=== PATIENT | female | born 2000 | race Caucasian/White ===

== ENCOUNTER 2020-10-27 11:38 | Inpatient (IN) | payer BC ==
[2020-10-27] MEDS ORDERED: CEFEPIME/SWI 1gm 10 ML ONE (13:09)
[2020-10-27] MEDS ORDERED: ONDANSETRON 4 MG/2 ML VIAL ONE (13:09)
[2020-10-27] MEDS ORDERED: MORPHINE 4 MG/ML SYR ONE ×2 (13:09→22:30)
[2020-10-27 13:12] LABS: BUN Blood Urea Nitrogen 11 mg/dL (7-18); Bicarbonate 24 mmol/L (21-32); Glucose Level 87 mg/dL (74-106); Potassium 3.5 mmol/L (3.5-5.1); Sodium Level 137 mmol/L (136-145)
[2020-10-27] MEDS ORDERED: VANCOMYCIN/NS 1 gm 1 GM/250 ML BAG IVPB ONE (13:15)
[2020-10-27 13:17] LABS: Absolute Lymphocytes (CBC) 6.5 K/uL (0.7-4.9); Basophils % 0.2 % (0-1.3); Hematocrit 40.4 % (36.0-45.0)
[2020-10-27 13:54] LABS: Urine Blood NEGATIVE (NEG); Urine Glucose NEGATIVE (NEG); Urine Protein 1+ (NEG); Urine Specific Gravity 1.025 (1.005-1.030)
--- NOTE | 2020-10-27 14:26 | EDPHYS ---
Physician Documentation [facility] Name: Lynne Pearson Age: 19 yrs Sex: Female : 2000 Arrival Date: 10/27/2020 Time: 11:40 Bed 17 Private MD: ED Physician Wilberto Ocampo HPI: 10/27 12:51 This 19 yrs old Female presents to ER via Ambulatory with complaints of jr8 Abscess. 12:52 The patient presents with an abscess of the left breast. Description: The affected area jr8 is moderate sized, draining, erythematous, swollen, tense. Onset: The symptoms/episode began/occurred gradually, 2 day(s) ago, and became worse. Possible cause(s): unknown. Associated signs and symptoms: The patient has no apparent associated signs or symptoms. Severity of symptoms: At their worst the symptoms were moderate. The patient has not experienced similar symptoms in the past. The patient has not recently seen a physician. Patient stated that she had a nipple piercing that looked infected. Took it out about 2 days ago. Now has left lateral breast abscess that is draining . 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 - Social history:: Smoking status: Patient denies any tobacco usage or history of. ROS: 12:52 Eyes: Negative for injury, pain, redness, and discharge, ENT: Negative for injury, jr8 pain, and discharge, Neck: Negative for injury, pain, and swelling, Cardiovascular: Negative for chest pain, palpitations, and edema, Respiratory: Negative for shortness of breath, cough, wheezing, and pleuritic chest pain, Abdomen/GI: Negative for abdominal pain, nausea, vomiting, diarrhea, and constipation, Back: Negative for injury and pain, MS/Extremity: Negative for injury and deformity, Neuro: Negative for headache, weakness, numbness, tingling, and seizure. 12:52 Skin: Positive for abscess, cellulitis, of the left breast. Exam: 12:52 Eyes: Pupils equal round and reactive to light, extra-ocular motions intact. Lids and jr8 lashes normal. Conjunctiva and sclera are non-icteric and not injected. Cornea within normal limits. Periorbital areas with no swelling, redness, or edema. ENT: Nares patent. No nasal discharge, no septal abnormalities noted. Tympanic membranes are normal and external auditory canals are clear. Oropharynx with no redness, swelling, or masses, exudates, or evidence of obstruction, uvula midline. Mucous membranes moist. Neck: Trachea midline, no thyromegaly or masses palpated, and no cervical lymphadenopathy. Supple, full range of motion without nuchal rigidity, or vertebral point tenderness. No Meningismus. Respiratory: Lungs have equal breath sounds bilaterally, clear to auscultation and percussion. No rales, rhonchi or wheezes noted. No increased work of breathing, no retractions or nasal flaring. Abdomen/GI: Soft, non-tender, with normal bowel sounds. No distension or tympany. No guarding or rebound. No evidence of tenderness throughout. Back: No spinal tenderness. No costovertebral tenderness. Full range of motion. MS/ Extremity: Pulses equal, no cyanosis. Neurovascular intact. Full, normal range of motion. Neuro: Awake and alert, GCS 15, oriented to person, place, time, and situation. Cranial nerves II-XII grossly intact. Motor strength 5/5 in all extremities. Sensory grossly intact. Cerebellar exam normal. Normal gait. 12:52 Cardiovascular: Rate: tachycardic, Rhythm: regular, Pulses: Pulses are 2+ in right radial artery and left radial artery. Heart sounds: normal, normal S1and S2, no S3 or S4, no murmur, no rub, no gallop, Edema: is not appreciated. 12:52 Skin: patient has moderated sided 5 cm x 5 cm left lateral abscess with induration and cellulitis surround about 2/3rd of patients breast. Tender and warm to touch . Vital Signs: 11:43 BP 120 / 70; Pulse 120; Resp 16 S; Temp 97.3(TE); Pulse Ox 100% on R/A; Weight 122.47 ca1 kg (R); Height 5 ft. 5 in. (165.10 cm) (R); Pain 7/10; 11:45 Pulse 113; ca1 14:06 BP 113 / 64; Pulse 95; Resp 16 S; Pulse Ox 99% on R/A; jd3 15:20 BP 122 / 56; Pulse 99; Resp 17 S; Pulse Ox 99% on R/A; jd3 16:21 BP 93 / 76; Pulse 100; Resp 16 S; Pulse Ox 99% on R/A; jd3 17:37 BP 99 / 51; Pulse 102; Resp 15 S; Pulse Ox 98% on R/A; jd3 18:45 BP 95 / 73; Pulse 100; Resp 16 S; Pulse Ox 100% on R/A; jd3 19:38 BP 114 / 68; Pulse 108; Resp 18; Pulse Ox 100% on R/A; mg2 11:43 Body Mass Index 44.93 (122.47 kg, 165.10 cm) ca1 MDM: 12:07 Patient medically screened. [facility] 14:16 Data reviewed: vital signs, nurses notes, lab test result(s), radiologic studies, [facility] ultrasound. Data interpreted: Pulse oximetry: on room air is 99 %. Interpretation: normal. Counseling: I had a detailed discussion with the patient and/or guardian regarding: the historical points, exam findings, and any diagnostic results supporting the discharge/admit diagnosis, lab results, radiology results, the need for further work-up and treatment in the hospital. ED course: Dr. Kat will admit patient and take to surgery at 8 AM . 10/27 12:20 Order name: CBC with Diff [facility] 10/27 12:20 Order name: BMP [facility] 10/27 12:20 Order name: Blood Culture Adult (2) [facility] 10/27 12:20 Order name: Wound Culture [facility] 10/27 13:12 Order name: Basic Metabolic Panel; Complete Time: 13:13 [facility] 10/27 13:19 Order name: CBC with Automated Diff; Complete Time: 13:24 [facility] 10/27 13:27 Order name: Urine Dipstick--Ancillary (enter results) 10/27 13:27 Order name: Urine --Ancillary (enter results) 10/27 13:55 Order name: Urine --Ancillary; Complete Time: 14:06 [facility] 10/27 13:55 Order name: Urine Dipstick-Ancillary; Complete Time: 14:06 [facility] 10/27 14:27 Order name: COVID-19: in house [facility] 10/27 16:58 Order name: CORONAVIRUS [facility] 10/27 18:07 Order name: SARS-COV-2 RT PCR; Complete Time: 18:18 EDMS 10/28 05:19 Order name: CBC with Automated Diff [facility] 10/27 12:20 Order name: IV; Complete Time: 12:51 jr8 10/27 12:52 Order name: US Extrmty Nonvasular Limited [facility] 10/27 12:52 Order name: Urine Test (obtain specimen); Complete Time: 13:14 8 10/27 12:52 Order name: Urine Dipstick-Ancillary (obtain specimen); Complete Time: 13:14 8 10/27 14:36 Order name: US; Complete Time: 14:39 EDMS 10/28 05:19 Order name: Basic Metabolic Panel [facility] 10/28 13:58 Order name: Wound Culture EDMS 10/28 13:59 Order name: Anaerobic Culture [facility] Administered Medications: 13:04 Drug: morphine 4 mg Route: IVP; Site: right wrist; jd3 14:00 Follow up: Response: No adverse reaction; RASS: Alert and Calm (0) jd3 13:05 Drug: Zofran (Ondansetron) 4 mg Route: IVP; Site: right wrist; jd3 14:00 Follow up: Response: No adverse reaction jd3 13:05 Drug: Cefepime 1 grams Route: IVPB; Rate: 200 ml/hr; Infused Over: 30 mins; Site: right jd3 wrist; 14:00 Follow up: Response: No adverse reaction; IV Status: Completed infusion jd3 14:12 Drug: vancoMYCIN 1 grams Route: IVPB; Infused Over: 2 hrs; Site: right wrist; jd3 16:00 Follow up: Response: No adverse reaction; IV Status: Completed infusion jd3 Disposition: 10/27/20 14:26 Hospitalization ordered by Mauricio Kat for Inpatient Admission. Preliminary diagnosis are Cellulitis Left Breast, Cutaneous abscess left breast . - Bed requested for Telemetry/MedSurg (Inpatient). - Status is Inpatient Admission. iw - Condition is Stable. - Problem is new. - Symptoms have improved. Addendum: 10/30/2020 06:27 Co-signature as Attending Physician, Wilberto Ocampo MD I agree with the assessment and t w4 plan of care. Signatures: Dispatcher [employer] EDMS Emani Leon RN RN iw Broderick Hernandez PA PA jr8 Virgen Mclaughlin RN RN cg Marcelino Garcia RN RN jd3 Wilberto Ocampo MD MD tw4 Zahra Hawkins eb Uma Garcia RN RN ca1 Corrections: (The following items were deleted from the chart) 10/27 11:45 11:45 PSHx: None; ca1 ca1 20:45 14:26 Hospitalization Ordered by Mauricio Kat MD for Inpatient Admission. Preliminary cg diagnosis is Cellulitis Left Breast; Cutaneous abscess left breast . Bed requested for Telemetry/MedSurg (Inpatient). Status is Inpatient Admission. Condition is Stable. Problem is new. Symptoms have improved. jr8 10/28 14:40 10/27 20:45 10/27/2020 14:26 Hospitalization Ordered by Mauricio Kat MD for Inpatient eb Admission. Preliminary diagnosis is Cellulitis Left Breast; Cutaneous abscess left breast . Bed requested for [facility] ER HOLD. Status is Inpatient Admission. Condition is Stable. Problem is new. Symptoms have improved. cg 10/28 15:47 14:40 10/27/2020 14:26 Hospitalization Ordered by Mauricio Kat MD for Inpatient iw Admission. Preliminary diagnosis is Cellulitis Left Breast; Cutaneous abscess left breast . Bed requested for Telemetry/MedSurg (Inpatient). Status is Inpatient Admission. Condition is Stable. Problem is new. Symptoms have improved. eb
--- NOTE | 2020-10-27 14:26 | ER ---
Nurse's Notes [facility] Name: Lynne Pearson Age: 19 yrs Sex: Female : 2000 Arrival Date: 10/27/2020 Time: 11:40 Bed 17 [facility] MD: Diagnosis: Cellulitis Left Breast;Cutaneous abscess left breast Presentation: 10/27 11:43 Chief complaint: Patient states: Abscess on L breast x 1 week. Coronavirus screen: ca1 Client denies travel out of the [place] in the last 14 days. At this time, the client does not indicate any symptoms associated with coronavirus-19. Ebola Screen: Patient negative for fever greater than or equal to 101.5 degrees Fahrenheit, and additional compatible Ebola Virus Disease symptoms Patient denies exposure to infectious person. Patient denies travel to an Ebola-affected area in the 21 days before illness onset. No symptoms or risks identified at this time. Initial Sepsis Screen: Does the patient meet any 2 criteria? No. Patient's initial sepsis screen is negative. Does the patient have a suspected source of infection? No. Patient's initial sepsis screen is negative. Risk Assessment: Do you want to hurt yourself or someone else? Patient reports no desire to harm self or others. Onset of symptoms was October 27, 2020. 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 - Social history:: Smoking status: Patient denies any tobacco usage or history of. Screenin:10 Abuse screen: Denies threats or abuse. Nutritional screening: No deficits noted. jd3 Tuberculosis screening: No symptoms or risk factors identified. Fall Risk Ambulatory Aid- None/Bed Rest/Nurse Assist (0 pts). Gait- Normal/Bed Rest/Wheelchair (0 pts) Mental Status- Oriented to own ability (0 pts). Total Koenig Fall Scale indicates No Risk (0-24 pts). Assessment: 12:08 General: Appears in no apparent distress. uncomfortable, Behavior is calm, cooperative, jd3 appropriate for age. Pain: Complains of pain in left breast Pain Quality of pain is described as sharp, tender. Neuro: Level of Consciousness is awake, alert, obeys commands, Oriented to person, place, time, situation. Cardiovascular: Denies chest pain, Capillary refill < 3 seconds Patient's skin is warm and dry. Respiratory: Airway is patent Respiratory effort is even, unlabored, Respiratory pattern is regular, symmetrical, Denies cough, shortness of breath. GI: No signs and/or symptoms were reported involving the gastrointestinal system. : No signs and/or symptoms were reported regarding the genitourinary system. EENT: No signs and/or symptoms were reported regarding the EENT system. Derm: Skin is intact, Skin is dry, Skin is normal, Skin temperature is warm Wound noted left breast Wound is red, swollen, foul smell noted. Musculoskeletal: Circulation, motion, and sensation intact. Range of motion: intact in all extremities. 13:05 Reassessment: Patient appears in no apparent distress at this time. No changes from jd3 previously documented assessment. Patient and/or family updated on plan of care and expected duration. Pain level reassessed. Patient is alert, oriented x 3, equal unlabored respirations, skin warm/dry/pink. 14:06 Reassessment: Patient appears in no apparent distress at this time. Patient and/or jd3 family updated on plan of care and expected duration. Pain level reassessed. Patient is alert, oriented x 3, equal unlabored respirations, skin warm/dry/pink. Patient states feeling better. 15:20 Reassessment: Patient appears in no apparent distress at this time. Patient and/or jd3 family updated on plan of care and expected duration. Pain level reassessed. Patient is alert, oriented x 3, equal unlabored respirations, skin warm/dry/pink. awaiting admission. 16:22 Reassessment: Patient appears in no apparent distress at this time. Patient and/or jd3 family updated on plan of care and expected duration. Pain level reassessed. Patient is alert, oriented x 3, equal unlabored respirations, skin warm/dry/pink. awaiting admission. 17:36 Reassessment: Patient appears in no apparent distress at this time. No changes from jd3 previously documented assessment. Patient and/or family updated on plan of care and expected duration. Pain level reassessed. Patient is alert, oriented x 3, equal unlabored respirations, skin warm/dry/pink. awaiting admission. pt resting in bed talking on phone with family. updated pt on plan of care. 18:45 Reassessment: Patient appears in no apparent distress at this time. No changes from jd3 previously documented assessment. Patient and/or family updated on plan of care and expected duration. Pain level reassessed. Patient is alert, oriented x 3, equal unlabored respirations, skin warm/dry/pink. awaiting admission. 19:37 Reassessment: Patient appears in no apparent distress at this time. Patient and/or mg2 family updated on plan of care and expected duration. Pain level reassessed. Patient is alert, oriented x 3, equal unlabored respirations, skin warm/dry/pink. explained about the covid test result. meal given. 10/28 15:32 Reassessment: Gave report to ZHANE Gerardo. Information from the SBAR was given. All rb3 questions asked and answered. Vital Signs: 10/27 11:43 BP 120 / 70; Pulse 120; Resp 16 S; Temp 97.3(TE); Pulse Ox 100% on R/A; Weight 122.47 ca1 kg (R); Height 5 ft. 5 in. (165.10 cm) (R); Pain 7/10; 11:45 Pulse 113; ca1 14:06 BP 113 / 64; Pulse 95; Resp 16 S; Pulse Ox 99% on R/A; jd3 15:20 BP 122 / 56; Pulse 99; Resp 17 S; Pulse Ox 99% on R/A; jd3 16:21 BP 93 / 76; Pulse 100; Resp 16 S; Pulse Ox 99% on R/A; jd3 17:37 BP 99 / 51; Pulse 102; Resp 15 S; Pulse Ox 98% on R/A; jd3 18:45 BP 95 / 73; Pulse 100; Resp 16 S; Pulse Ox 100% on R/A; jd3 19:38 BP 114 / 68; Pulse 108; Resp 18; Pulse Ox 100% on R/A; mg2 11:43 Body Mass Index 44.93 (122.47 kg, 165.10 cm) ca1 ED Course: 11:40 Patient arrived in ED. ag5 11:44 Triage completed. ca1 11:45 Arm band placed on right wrist. ca1 12:02 Marcelino Garcia RN is Primary Nurse. jd3 12:06 Broderick Hernandez PA is PHCP. jr8 12:06 Wilberto Ocampo MD is Attending Physician. jr8 12:10 Patient has correct armband on for positive identification. Placed in gown. Bed in low jd3 position. Call light in reach. Side rails up X 1. Pulse ox on. NIBP on. 12:35 Initial lab(s) drawn, by me, sent to lab. First set of blood cultures drawn by me. jl7 12:40 Assist provider with I \T\ D: of an abscess on left breast Set up I\T\D tray. Performed by juliet 3 Broderick SNELL Culture sent to lab. Dressing with 4X4s, Patient tolerated well. 12:40 Patient admitted, IV remains in place. jd3 12:43 Inserted saline lock: 20 gauge in right wrist, using aseptic technique. Blood collected.jl7 12:43 Second set of blood cultures drawn. jl7 14:01 Urine --Ancillary (enter results) Sent. sv 14:01 Urine Dipstick--Ancillary (enter results) Sent. sv 14:24 Mauricio Kat MD is Hospitalizing Provider. jr8 18:09 CORONAVIRUS Sent. sv 18:09 COVID-19: in house Sent. sv 18:09 BMP Sent. sv 18:09 CBC with Diff Sent. sv 18:09 US Extrmty Nonvasular Limited Sent. sv 19:38 Dressings: non-adherent dressing x 1 left breast. mg2 10/28 01:06 Dressings: 4X4s X 2; chest and left breast. jb5 01:07 Wound care: to located on chest and left breast. jb5 01:08 Pillow given. Patient assisted to hospital bed from ER bed for comfort. . jb5 Administered Medications: 10/27 13:04 Drug: morphine 4 mg Route: IVP; Site: right wrist; jd3 14:00 Follow up: Response: No adverse reaction; RASS: Alert and Calm (0) jd3 13:05 Drug: Zofran (Ondansetron) 4 mg Route: IVP; Site: right wrist; jd3 14:00 Follow up: Response: No adverse reaction jd3 13:05 Drug: Cefepime 1 grams Route: IVPB; Rate: 200 ml/hr; Infused Over: 30 mins; Site: right jd3 wrist; 14:00 Follow up: Response: No adverse reaction; IV Status: Completed infusion jd3 14:12 Drug: vancoMYCIN 1 grams Route: IVPB; Infused Over: 2 hrs; Site: right wrist; jd3 16:00 Follow up: Response: No adverse reaction; IV Status: Completed infusion jd3 Outcome: 14:26 Decision to Hospitalize by Provider. jr8 10/28 15:47 Patient left the ED. iw Signatures: Arabella Antonio, RN RN Emani Jang RN RN Broderick Hernandez PA PA jr8 Jaja Howell jb5 Mendez Rizo RN RN jl7 Marcelino Garcia RN RN jd3 Pérez Farmer RN RN mg2 Uma Garcia RN RN ca1 Mirella Sky 5 Tabby Haskins, RN RN rb3 Corrections: (The following items were deleted from the chart) 10/27 11:45 11:45 PSHx: None; ca1 ca1 14:12 14:06 Pulse 95bpm; Resp 16bpm; Spontaneous; Pulse Ox 99% RA; jd3 jd3 17:40 15:00 Response: No adverse reaction; IV Status: Completed infusion jd3 jd3
--- NOTE | 2020-10-27 14:35 | RAD REPORT ---
EXAM DESCRIPTION: US - Extremity Nonvascular Limited - 10/27/2020 1:52 pm CLINICAL HISTORY: large left breast abscess COMPARISON: No comparisons TECHNIQUE: Limited sonographic evaluation of the lateral left breast performed. Patient has a draini ng palpable mass 9 o'clock left breast. FINDINGS: Sonographic evaluation shows heterogeneous, hypointense serpiginous echogenicity in the narvaez perficial 10 mm of the 9 o'clock region left breast. Findings are consistent with infectious/inflamma tory fluid in the subcutaneous and superficial breast tissues. This cellulitis appearance does not co ntain any defined or drainable abscess collection. IMPRESSION: Infectious/ inflammatory fluid in the superficial tissues lateral left breast. No abscess or drainable fluid collection.
[2020-10-27] MEDS ORDERED: ACETAMINOPHEN 500 MG TAB PO PRN (21:14)
[2020-10-27] MEDS ORDERED: ONDANSETRON 4 MG/2 ML VIAL IV PRN (21:14)
[2020-10-27] MEDS: NA CHLORIDE 0.9% 1,000 ML IV SCH (21:14)
[2020-10-27] MEDS ORDERED: MORPHINE 4 MG/ML SYR IV PRN (21:14)
[2020-10-27 21:48] VITALS: BMI 44.9
[2020-10-27] MEDS ORDERED: NA CHLORIDE 0.9% 1,000 ML ONE (22:10)
[2020-10-28] MEDS: CEFEPIME/SWI 1gm 10 ML IV SCH ×3 (01:00→19:56)
[2020-10-28] MEDS ORDERED: CEFEPIME 1 GM/VIAL IV SCH (01:00)
[2020-10-28] MEDS: VANCOMYCIN/NS 1 gm 1 GM/250 ML BAG IVPB SCH ×2 (02:44→14:00)
[2020-10-28] MEDS ORDERED: VANCOMYCIN 1 GM/VIAL ONE (02:52)
[2020-10-28] MEDS ORDERED: NA CHLORIDE 0.9% 250 ML ONE (02:52)
[2020-10-28] MEDS ORDERED: CEFEPIME/SWI 1gm 10 ML ONE ×2 (02:52→10:08)
[2020-10-28] MEDS ORDERED: ACETAMINOPHEN 500 MG TAB ONE (04:57)
[2020-10-28 05:15] LABS: Absolute Lymphocytes (CBC) 6.6 K/uL (0.7-4.9); Basophils % 0.4 % (0-1.3); Hematocrit 36.9 % (36.0-45.0); Lymphocytes % 44.3 % (15.3-44.8); MPV 8.9 fL (7.6-11.3); RBC Red Blood Cell Count 4.29 M/uL (3.86-4.86)
[2020-10-28 05:19] LABS: BUN Blood Urea Nitrogen 9 mg/dL (7-18); Bicarbonate 26 mmol/L (21-32); Glucose Level 91 mg/dL (74-106); Potassium 3.5 mmol/L (3.5-5.1); Sodium Level 138 mmol/L (136-145)
[2020-10-28] MEDS: NA CHLORIDE 0.9% 1,000 ML IV SCH ×4 (07:14→22:41)
[2020-10-28] MEDS ORDERED: BUPIVACAINE 0.5% PF 10 ML VIAL ONE (07:48)
[2020-10-28] MEDS ORDERED: Ringers Lactate 1,000 ML IV ONE (07:55)
[2020-10-28] MEDS ORDERED: CEFAZOLIN/SWI 1gm 1 GM/10 ML SYR ONE (07:56)
[2020-10-28] MEDS ORDERED: MIDAZOLAM HCL 2 MG/2 ML INJ ONE (08:33)
[2020-10-28] MEDS ORDERED: FENTANYL CITR 100 MCG/2 ML ONE (08:33)
[2020-10-28] MEDS ORDERED: propofoL 200 MG/20 ML VIAL IV ONE (08:33)
[2020-10-28] MEDS ORDERED: SUCCINYLCHOLINE 20 MG/ML (10 ML) IV ONE (08:34)
--- NOTE | 2020-10-28 08:51 | PREOPHP ---
Date of Admission: 10/27/2020 Reason For Admission: Left breast pain. History Of Present Illness: This is a 19-year-old female, who had a piercing of the nipple on the le ft breast about 6 months ago and about 2 days ago noticed redness, swelling, pain, and minimal draina ge from the lateral aspect of the left breast and this is associated with localized fever. She came to the ER. Had a leukocytosis, was admitted, had COVID test, although she does not have any symptoms of COVID, she is positive. No sore throat, runny nose, cough, headaches, or dizziness. No systemic fever or chills. No chest pain. Review of Systems: Otherwise unremarkable. Medical History: Negative. Past Surgical History: Tonsillectomy. Allergies: NO ALLERGIES. Social History: The patient does not smoke. Drinks occasionally. Family History: Noncontributory. Physical Examination: Vital Signs: Stable. She is currently afebrile. Temperature is low-grade at 100.0. General: She is awake, alert, and oriented x3. Head and neck: Cranial 2-12 grossly within normal limits. No neck masses. No JVD. Throat clear. Neck is supple. Chest: Clear. Heart: S1 and S2. Abdomen: Soft, Extremities: Neurovascularly intact. Neurologic: Nonfocal. Breasts: Left breast on the lateral aspect, there is erythema, warmth, edema and there is central ne crosis and fluctuance in with approximately 3 cm area of necrotic skin present with minimal drainage from it. Laboratory Data: White count was 19,800 on admission. Today, it is 15,000. Chemistry reviewed, ess entially unremarkable. Urinalysis unremarkable and test is negative. COVID positive. She had an ultrasound done yesterday of the breast, which shows hyperintense superficial breast left larry e, 10 mm in the 9 o'clock location consistent with infectious inflammatory fluid in the subcutaneous superficial breast tissue. Assessment: Left breast abscess and cellulitis. Plan: Admit n.p.o., IV fluid, IV antibiotic, to the OR for incision and drainage and debridement of left breast abscess and cellulitis and also hospice consulted for management of COVID with prophylact ic medicines that may benefit the patient. JUSTIN/CHECO Voice ID: [id number]
[2020-10-28] MEDS: MORPHINE 4 MG/ML SYR ONE ×2 (09:07→09:12)
--- NOTE | 2020-10-28 09:12 | P.OP ---
Preoperative diagnosis: Left Breast Abscess Postoperative diagnosis: same Primary procedure: I and D and Debridement Left Breast Abscess Anesthesia: General Estimated blood loss: min Specimen: Necrotic tissue and C&S Findings: as above Transferred to: Recovery Room Condition: Good
[2020-10-28 09:14] VITALS: O2SAT 99
[2020-10-28] MEDS ORDERED: HYDROCODONE/APAP 7.5/325 MG TAB PO PRN (09:15)
[2020-10-28] MEDS ORDERED: HYDROMORPHONE HCL 1 MG/ML INJ IV PRN (09:15)
[2020-10-28] MEDS ORDERED: ONDANSETRON 4 MG/2 ML VIAL ONE (09:17)
[2020-10-28] MEDS ORDERED: CHLORHEXIDINE GLUCO 4% 120 ML TOP SCH (10:00)
--- NOTE | 2020-10-28 10:21 | OP ---
Date of Procedure: 10/28/2020 Surgeon: Mauricio Kat MD Preoperative Diagnosis: Left breast abscess. Postoperative Diagnosis: Left breast abscess. Procedure: Incision and drainage and debridement of left breast abscess. Estimated Blood Loss: Minimal. Specimen: Culture and sensitivity. Findings: As above. Anesthesia: General. Complications: None. Disposition: The patient tolerated the procedure in stable condition, taken to Recovery in good gene ral condition. Description Of Procedure: The patient was brought to the OR and placed in supine position. General anesthesia begun. The patient prepped and draped in usual sterile fashion. Marcaine 0.5% infiltrate d for locally then the necrotic tissue that was approximately 2.5 cm to 3 cm, excised pus under press ure evacuated. Cultures done. Necrotic tissue debrided. Wound irrigated. Bleeding controlled with cautery. Wet-to-dry normal saline dressing change applied. The patient tolerated the procedure in stable condition, taken to Recovery in good general condition. JUSTIN/CHECO Voice ID: [id number] Report ID: [id number]
[2020-10-28] MEDS ORDERED: NA CHLORIDE 0.9% 1,000 ML ONE (11:56)
--- NOTE | 2020-10-28 12:17 | P.CNS ---
Date of Consult: 10/28/20 Reason for Consult: COVID-19 + Requesting Physician: Mauricio Kat Chief Complaint: L breast pain History of Present Illness: 19-year-old, morbidly obese female, PMH: PCOS (not on any medications, presented to the ED with 2 days of redness, swelling, pain, and minimal drainage from the lateral left breast. She reports having her left nipple pierced approximately 6 months ago. She was found have a leukocytosis of 19.8. General surgery was consulted and patient was taken to the operating room for I&D. In during her preoperative workup, patient was found to be positive for COVID-19. She denies any symptoms. She denies any shortness of breath, no chest pain, no diarrhea, no nausea/vomiting. She states she has been practicing social distance in an is unsure where she would have been exposed. Possibly when dropping off work at her bosses home. She reports an aunt had diabetes, but no other family member. No family history of cardiac disease. Allergies No Known Allergies Allergy (Unverified 10/27/20 17:51) - Past Medical/Surgical History -: PCOS -: Left breast abscess I &D -: Tonsillectomy - Social History Smoking Status: Never smoker Place of Residence: Home Review of Systems 10-point ROS is otherwise unremarkable Physical Examination Temp Pulse Resp BP Pulse Ox 97.4 F 85 18 114/60 98 10/28/20 09:22 10/28/20 09:22 10/28/20 09:22 10/28/20 09:22 10/28/20 04:00 General: Alert, In no apparent distress, Oriented x3 HEENT: Sclerae nonicteric Neck: Supple Respiratory: Clear to auscultation bilaterally, Normal air movement Cardiovascular: No edema, Regular rate/rhythm Gastrointestinal: Soft and benign, Non-distended, No tenderness Integumentary: Other (Left breast with surgical dressing in place) Laboratory Data (last 24 hrs) 10/27/20 12:43: Sodium 137, Potassium 3.5, BUN 11, Creatinine 0.58, Glucose 87 10/27/20 12:43: WBC 19.8 H, Hgb 13.3, Hct 40.4, Plt Count 371 Physician Review Additional Text: Left breast abscess s/p I&D COVID-19 +, asymptomatic PCOS Morbid obesity -patient is in the moderate-high risk of developing further COVID19 symptoms/complications given her morbid obesity, and PCOS -unclear if patient has been positive for some time and just asymptomatic or early on in her course. -patient has been taking vitamins at [facility], vitamin-C, zinc, continue here as well -will give Ivermectin 18mg today, repeat dose in 48hrs for prophylaxis -discussed with pharmacy we do not have any monoclonal antibody in stock at this time. -asymptomatic and does not warrant steroid treatment at this time. Time Spent Managing Pts care (In Minutes): 60
[2020-10-28] MEDS: VITAMIN D 5,000 UNIT CAP PO SCH (12:30)
[2020-10-28] MEDS ORDERED: VITAMIN D 1000 UNIT TAB ONE (13:43)
[2020-10-28] MEDS: ASCORBIC ACID 500 MG TABLET PO SCH (19:55)
[2020-10-28] MEDS: MUPIROCIN 2% OINT 22GM TUBE TOP SCH (21:00)
[2020-10-28] MEDS ORDERED: IVERMECTIN 3 MG TABLET PO ONE (23:11)
[2020-10-29] MEDS: VANCOMYCIN/NS 1 gm 1 GM/250 ML BAG IVPB SCH (01:28)
[2020-10-29] MEDS ORDERED: NA CHLORIDE 0.9% 250 ML ONE (01:36)
[2020-10-29] MEDS ORDERED: VANCOMYCIN 1 GM/VIAL ONE (01:38)
[2020-10-29 04:12] LABS: Absolute Lymphocytes (CBC) 5.1 K/uL (0.7-4.9); Basophils % 0.5 % (0-1.3); Hematocrit 37.2 % (36.0-45.0); Lymphocytes % 54.9 % (15.3-44.8); MPV 8.5 fL (7.6-11.3); RBC Red Blood Cell Count 4.31 M/uL (3.86-4.86)
[2020-10-29 04:54] LABS: C-Reactive Protein 97.9 mg/L (<3.00); Ferritin 146.2 ng/mL (8-388)
[2020-10-29 08:27] VITALS: BP 118/73; TEMP 96.9
[2020-10-29] MEDS ORDERED: ZINC SULFATE 220 MG CAP PO SCH (09:00)
[2020-10-29] MEDS ORDERED: THIAMINE HCL 100 MG TABLET PO SCH (09:00)
[2020-10-29] MEDS: VITAMIN D 5,000 UNIT CAP PO SCH (09:40)
[2020-10-29] MEDS: ASCORBIC ACID 500 MG TABLET PO SCH (09:41)
[2020-10-29] MEDS: MUPIROCIN 2% OINT 22GM TUBE TOP SCH (09:43)
[2020-10-29] MEDS: CEFEPIME/SWI 1gm 10 ML IV SCH (09:43)
--- NOTE | 2020-10-29 12:02 | P.PN ---
Subjective Date of Service: 10/29/20 Chief Complaint: L breast pain Subjective: Improving (And doing well, reports some slight tenderness the left breast. Denies shortness of breath, no cough, no dyspnea on exertion. No abdominal pain and diarrhea) Review of Systems 10-point ROS is otherwise unremarkable Physical Examination - Vital Signs Temperature: 96.9 F Blood Pressure: 118/73 Pulse: 88 Respirations: 18 Pulse Ox (%): 99 - Physical Exam General: Alert, In no apparent distress Neck: Supple Respiratory: Clear to auscultation bilaterally, Normal air movement Cardiovascular: No edema, Regular rate/rhythm, Normal S1 S2 Gastrointestinal: Soft and benign, Non-distended, No tenderness - Studies Microbiology Data (last 24 hrs): 10/27/20 12:25 Wound - Left Breast Gram Stain - Final 10/27/20 12:25 Wound - Left Breast Culture & Sensitivity - Final Assessment & Plan Physician Review Additional Text: Left breast abscess s/p I&D COVID-19 +, asymptomatic PCOS Morbid obesity -for discharge today -patient to continue taking her vitamins -for received ever make 18 mg on 10/28. Prescription given for 1 more dose to be taken tomorrow -no signs/symptoms of COVID-19 pneumonia at this time -advised to come to ED if develops significant SOB / SAUNDERS. otherwise can f/u with PCP Time Spent Managing Pts Care (In Minutes): 30
--- NOTE | 2020-10-29 14:28 | DS ---
Date of Discharge: 10/29/2020 Admitting Diagnosis: Left breast abscess, cellulitis, and COVID positive. Discharge Diagnosis: Left breast abscess, cellulitis, and COVID positive. Procedure Performed: Incision, drainage, and debridement of left breast abscess. Hospital Course: The patient is a 19-year-old female who underwent the aforementioned procedure. Po stoperatively, she was seen by Dr. Mcgraw for management of her COVID test and she was maintained on I V antibiotics. Gram stain normal skin adrián. The redness is improved and the white count is normalized. Therefore, the patient will be discharged to home. Disposition: Home. Condition: Stable. Discharge Instructions: Resume home medications and diet. Activity as tolerated. No heavy lifting. Wet-to-dry normal saline dressing changes daily. Keflex 500 mg p.o. q.6. Follow up in my office i n 2 weeks. Call for appointment. MARTINEZ Voice ID: [id number] Report ID: [id number]
== END 2020-10-29 11:15 | disposition home or self-care (01) | DRG 570 ==
LOC: ER 11:38 → ERHOLD 17:59 → 4TH 10-28 15:32
PROVIDERS: ADMIT Surgery; ATTEND Surgery
PROC: 0JB60ZZ Excision of Chest Subcutaneous Tissue and Fascia, Open Approach (ICD-10-PCS; principal; 2020-10-28 08:00)
DX: N61.0 Mastitis without abscess (principal); U07.1 COVID-19; Z68.41 Body mass index [BMI] 40.0-44.9, adult; E66.01 Morbid (severe) obesity due to excess calories; D72.829 Elevated white blood cell count, unspecified; N61.1 Abscess of the breast and nipple; E28.2 Polycystic ovarian syndrome
CPT/HCPCS: 36415; 76882; 80048; 81003; 81025; 82728; 85025; 86140; 87040; 87070; 87075; 87077; 87186; 87205; 88304; 96365; 96366; 96367; 96375; 99284; J0330; J0690; J0692; J1170; J2250; J2405; J2704; J3010; J3370; J7030; J7050; J7120; U0003

== ENCOUNTER 2021-10-02 07:41 | Emergency (ER) | payer BC ==
--- OUTSIDE RECORDS SUMMARY | 2021-10-02 07:43 | XMS REPORT | Continuity of Care Document ---
:2000 Author Organization [facility] t Address [address] [place] [address] Care Team Providers Name Role Phone Radiology Attending Clinician Unavailable AUGUSTO FROST Attending Clinician Unavailable Pob, Adc Lab Main Attending Clinician Unavailable Santosh YATES Attending Clinician RADIOLOGY Attending Clinician Unavailable Doctor Unassigned, Name Attending Clinician Unavailable Payers Payer Name Policy Type Policy Number Effective Date Expiration Date S ource Problems Condition Condition Condition Status Onset Resolution Last Treating Co mments Source Name Details Category Date Date Treatment Clinician Date TIFFANY TIFFANY Disease Active 2015-10 [facility] (obstructi (obstructi 10-07 it y of ve sleep ve sleep 00:00: [place] apnea) apnea) 00 [facility] Allergies, Adverse Reactions, Alerts Allergy Allergy Status Severity Reaction(s) Onset Inactive Treating Comm ents Source Name Type Date Date Clinician NO KNOWN Drug Active Univers ALLERGIE Class [facility] Social History Social Habit Start Date Stop Date Quantity Comments Source Exposure to Not sure [facility] SARS-CoV-2 (event) Medica l Branch Tobacco use and 2016-08-08 2016-08-08 Never used [facility] exposure 00:00:00 00:00:00 [facility] [place] Alcohol intake 2016-08-08 2016-08-08 [facility] 00:00:00 00:00:00 [facility] Sex Assigned At 2000 2000 [facility] [place] 00:00:00 00:00:00 [facility] Smoking Status Start Date Stop Date Source Never smoker [facility] Medications Ordered Filled Start Stop Current Ordering Indication Dosage Frequency Signature Comments Components Source Medication Medication Date Date Medication? Clinician (SIG) Name Name christoph 2020- No [id number] 100mL 100 mL, Univers (OMNIPAQUE 01-19-16 Intravenou it y of 350 17:58: 18:04 s, ONCE, 1 [place] BULK-100 00 :00 dose, Fri Medica l mL) 01/19/21 at Branch injection 1315, 100 mL Routine HYDROcodone 2015-10 Yes 15mL Take 15 mL Univers -acetaminop 1-02 by mouth ity of hen (HYCET) 00:00: every 6 Jamar as 7.5-325 00 (six) Medical mg/15 mL hours. Branch solution ibuprofen 2015-10 Yes 1275mg Take 63.75 Univers (ADVIL 1-02 mL by ity of CHILDREN'S) 00:00: mouth [place] 100 mg/5 mL 00 every 6 Medic al suspension (six) Branch hours. HYDROcodone 2015-10 Yes 15mL Take 15 mL Univers -acetaminop 1-02 by mouth ity of hen (HYCET) 00:00: every 6 Jamar as 7.5-325 00 (six) Medical mg/15 mL hours. Branch solution ibuprofen 2015-10 Yes 1275mg Take 63.75 Univers (ADVIL 1-02 mL by ity of CHILDREN'S) 00:00: mouth [place] 100 mg/5 mL 00 every 6 Medic al suspension (six) Branch hours. HYDROcodone 2015-10 Yes 15mL Take 15 mL Univers -acetaminop 1-02 by mouth ity of hen (HYCET) 00:00: every 6 Jamar as 7.5-325 00 (six) Medical mg/15 mL hours. Branch solution ibuprofen 2015-10 Yes 1275mg Take 63.75 Univers (ADVIL 1-02 mL by ity of CHILDREN'S) 00:00: mouth [place] 100 mg/5 mL 00 every 6 Medic al suspension (six) Branch hours. RENEE, Yes TK 1 T PO Univ ers 28, 3-0.02 9-02 QD ity of mg per 00:00: [place] tablet 00 Medical Branch RENEE, 2016-0 Yes TK 1 T PO Univ ers 28, 3-0.02 9-02 QD ity of mg per 00:00: [place] tablet 00 [facility] VESTURA, 2016-0 Yes TK 1 T PO Univ ers 28, 3-0.02 9-02 QD ity of mg per 00:00: [place] tablet 00 [facility] Procedures Procedure Date / Time Performed Performing Clinician Sourc e CT ABDOMEN PELVIS W WO 2021-01-19 18:03:11 [facility] 2021-01-19 17:55:00 Radiology [facility] CONSENT/REFUSAL FOR 2021-01-19 16:50:46 Doctor Unassigned, No [facility] TREATMENT ASSIGNMENT OF BENEFITS 2021-01-19 16:50:31 Doctor Unassigned, No [facility] Encounters Start End Encounter Admission Attending Care Care Encounter Source Date/Time Date/Time Type Type Clinicians Facility Department ID 2021-01-19 2021-01-19 Hospital Radiology [facility] [id number] Univers 11:55:00 23:59:00 Encounter Jaron [id number] ity of [place] [id number] [facility] [id number] [address] 2021-01-19 2021-01-19 Outpatient R SANTOSH [facility] [id number] Univers 12:45:00 12:45:00 AUGUSTO gonzalez [facility] 2021-01-19 2021-01-19 Staff Radiologist Luis, Renetta Lab Main [facility] [id number] Univers 11:52:24 12:07:24 Visit Augusto Frost [id number] [facility] [id number] [facility] [id number] Ms dical [address] 2021-01-19 2021-01-19 Outpatient R RADIOLOGY [facility] [id number] Univers 11:55:00 11:55:00 [id number] ity of [facility] 2021-01-19 2021-01-19 Outpatient R RADIOLOGY [facility] RAD [id number] Univers 00:00:00 00:00:00 ity of [facility] 2021-01-19 2021-01-19 Orders Doctor RICHIE [id number] Univers 00:00:00 00:00:00 Only Unassigned, BILLY [id number] ity of [facility] [id number] Jamar as [id number] [address] Results Test Description Test Time Test Comments Results Result Comments Source POCT CREATININE 2021-01-20 00:04:20 Test Item Value Reference Range Interpretation Comme nts POCT Creatinine (test code = [id number]) 0.6 mg/dL 0.5-1.1 Lab Interpretation (test code = 09660-7) Normal [facility] WO [id number] 18:31:201. ?Normal appendix. 2. ?Scattered subcentimeter lymph nodes throughout the mesentery andmesentericroot are nonspecific and probably reactive (may representmesenteric adenitis). 3. ?Otherwise, no radiographic findings to explain patient's right lowerquadrant pain. 4. ?Both ovaries appear normal for patient's age with the right ovaryslightly higher within the right lower quadrant/upper pelvis. Considerpelvic ultrasound of the is any concern for ovarian torsion. CT ABDOMEN AND PELVIS WITH CONTRAST REASON FOR STUDY: Right lower quadrant pain and polycystic ovariansyndrome. COMPARISON: None available. TECHNIQUE: Multidetector axial CT images from lung bases through proximalthighs after IV administration of nonionic iodinated contrast material.Coronal and sagittal MPR images also generated. INTRAVENOUS CONTRAST ADMINISTRATION (mL Isovue): 100. Total DLP: 1653 mGy*cm FINDINGS: Lower chest: Mild bibasilar atelectasis. ABDOMEN AND PELVISLiver: Liver measures 17.3 cm in craniocaudal dimension at mid clavicularline. No focal hepatic lesions identified. Normal hepatic surface contour. Biliary Tract/GB: Partially contracted gallbladder without radiopaquecholelithiasis. No biliary ductal dilatation. Spleen: No splenomegaly. Few small perihilar splenules. Pancreas: Within normal limits. Adrenals: Within normal limits. Kidneys: Normal unenhanced appearance of bilateral kidneys. Nohydronephrosis, nephrolithiasis or renal mass. Bowel: No abnormal dilatation or abnormal wall thickening. Normal appendix(8:107). Small bowel appears unremarkable. The patulous distal esophagus. Peritoneum: No pneumoperitoneum or free fluid. Vasculature: Within normal limits. Lymph Nodes: Few scattered subcentimeter lymphnodes throughout themesentery and mesenteric root measuring less than 1 cm short axis arelikely reactive (for example 8:65). ? Pelvic organs: Urinary bladder is normal for the degree of distention.Uterus and ovaries appear unremarkable. Abdominal/Pelvic Wall: Tiny fat-containing umbilical hernia. BONES: No acute or suspicious osseous abnormality. [facility], Radiant Results Inft User - 01/19/2021 1:32 PM CDTCT ABDOMEN AND PELVIS WITH CONTRASTREASON FOR STUDY: Right lower quadrant pain and polycystic ovariansyndrome.COMPARISON: None available.TECHNIQUE: Multidetector axial CT images from lung bases through proximalthighs after IV administration of nonionic iodinated contrast material.Coronal and sagittal MPR images also generated.INTRAVENOUS CONTRAST ADMINISTRATION (mL Isovue): 100.Total DLP: 1653 mGy*cmFINDINGS: Lower chest: Mild bibasilar atelectasis.ABDOMEN AND PELVISLiver: Liver measures 17.3 cm in craniocaudal dimension at mid clavicularline. No focal hepatic lesions identified. Normal hepatic surface contour.Biliary Tract/GB: Partially contracted gallbladder without radiopaquecholelithiasis. No biliary ductal dilatation.Spleen: No splenomegaly. Few small perihilar sp lenules.Pancreas: Within normal limits.Adrenals: Within normal limits.Kidneys: Normal unenhanced appearance of bilateral kidneys. Nohydronephrosis, nephrolithiasis or renal mass.Bowel: No abnormal dilatation or abnormal wall thickening. Normal appendix(8:107). Small bowel appears unremarkable. The patu lous distal esophagus.Peritoneum: No pneumoperitoneum or free fluid.Vasculature: Within normal limits.Lymph Nodes: Few scattered subcentimeter lymph nodes throughout themesentery and mesenteric root measuring less than 1 cm short axis arelikely reactive (for example 8:65). Pelvic organs: Urinary bladder is normal for the degree of distention.Uterus and ovaries appear unremarkable.Abdominal/Pelvic Wall: Tiny fat-containing umbilical hernia.BONES: No acute or suspicious osseous abnormality.IMPRESSION1. Normal appendix. 2. Scattered subcentimeter lymph nodes throughout the mesentery andmesenteric root are nonspecific and probably reactive (may representmesenteric adenitis).3. Otherwise, no radiographic findings to explain patient's right lowerquadrant pain. 4. Both ovaries appear normal for patient's age with the right ovaryslightly higher within the right lower quadrant/upper pelvis. Considerpelvic ultrasound of the is any concern for ovarian torsion. [facility]
[2021-10-02 10:01] LABS: SARS-COV-2 RT PCR POSITIVE (NEGATIVE)
--- NOTE | 2021-10-02 10:54 | ER ---
Nurse's Notes [facility] Name: Lynne Pearson Age: 20 yrs Sex: Female : 2000 Arrival Date: 10/02/2021 Time: 07:44 Bed 7 Private MD: Jaja Peter Diagnosis: Acute upper respiratory infection, unspecified;SARS-associated coronavirus as the cause of diseases classified elsewhere Presentation: 10/02 08:09 Chief complaint:. Chief complaint: Patient states: Cough, fever, ANDERSON, body aches for 2 ll1 days. Exposed to covid. Coronavirus screen: Vaccine status: Patient reports being unvaccinated. Client denies travel out of the [place] in the last 14 days. chills, congestion, diarrhea, fatigue, fever, headache, muscle pain, nausea, shortness of breath, sore throat, loss of taste or smell, vomiting. Client presents with at least one sign or symptom that may indicate coronavirus-19. Standard/surgical mask placed on the client. Ebola Screen: Patient denies travel to an Ebola-affected area in the 21 days before illness onset. Initial Sepsis Screen: Does the patient meet any 2 criteria? No. Patient's initial sepsis screen is negative. Does the patient have a suspected source of infection? Yes: Productive cough/pneumonia. Risk Assessment: Do you want to hurt yourself or someone else? Patient reports no desire to harm self or others. Onset of symptoms was October 01, 2021. 08:09 Method Of Arrival: Ambulatory ll1 08:09 Acuity: JAYMIE 4 ll1 Triage Assessment: 08:10 General: Appears distressed, uncomfortable, ill, Behavior is cooperative, appropriate bp for age, anxious. Pain: Denies pain. EENT: Reports nasal congestion. Neuro: No deficits noted. Cardiovascular: No deficits noted. Respiratory: Reports cough that is. GI: No signs and/or symptoms were reported involving the gastrointestinal system. : No signs and/or symptoms were reported regarding the genitourinary system. Derm: No deficits noted. Musculoskeletal: No deficits noted. Historical: - Allergies: 08:08 No Known Allergies; ll1 - PMHx: 08:08 PCOS; ll1 - PSHx: 08:08 abscess; ll1 - Immunization history:: Client reports having NOT received the Covid vaccine. Flu vaccine status is unknown. - Social history:: Smoking status: Patient reports the use of cigarette tobacco products, denies chronic smoking, but will smoke occasionally. Screenin:10 Abuse screen: Denies threats or abuse. Denies injuries from another. Nutritional bp screening: No deficits noted. Tuberculosis screening: No symptoms or risk factors identified. Fall Risk None identified. Assessment: 08:10 General: SEE TRIAGE NOTE. bp 11:28 Reassessment: Patient and/or family updated on plan of care and expected duration. Pain jh6 level reassessed. Patient is alert, oriented x 3, equal unlabored respirations, skin warm/dry/pink. Vital Signs: 08:09 BP 131 / 81; Pulse 97; Resp 18; Temp 100.8; Pulse Ox 99% ; Weight 124.74 kg; Height 5 ll1 ft. 4 in. (162.56 cm); Pain 5/10; 11:27 BP 126 / 82; Pulse 84; Resp 20; Temp 98.5(O); Pulse Ox 99% ; jh6 08:09 Body Mass Index 47.20 (124.74 kg, 162.56 cm) ll1 ED Course: 07:44 Patient arrived in ED. mr 07:44 Jaja Peter is Private Physician. mr 08:09 Arm band placed on. ll1 08:10 Brady Sweeney MD is Attending Physician. kdr 08:10 Patient has correct armband on for positive identification. Bed in low position. Call bp light in reach. Side rails up X2. 08:11 Triage completed. ll1 08:17 Edgar Walker, ZHANE is Primary Nurse. bp 09:26 Strep Sent. bp 09:26 Group A Streptococcus Rapid Sc Sent. bp 09:27 COVID-19/FLU A+B Sent. bp 10:54 Jaja Peter is Referral Physician. kdr 11:27 No provider procedures requiring assistance completed. Inserted Patient did not have IV jh6 access during this emergency room visit. Administered Medications: No medications were administered Outcome: 10:54 Discharge ordered by . kdr 11:28 Discharged to home jh6 11:28 Condition: stable 11:28 Discharge instructions given to patient, family, Instructed on discharge instructions, follow up and referral plans. Demonstrated understanding of instructions, follow-up care. 11:28 Patient left the ED. jh6 Signatures: Brady Sweeney MD MD [facility], Edgar Ramírez, RN RN bp Krishna Phillips RN RN 1 Jaja Ferrell RN RN 6
--- NOTE | 2021-10-02 10:55 | EDPHYS ---
Physician Documentation [facility] Name: Lynne Pearson Age: 20 yrs Sex: Female : 2000 Arrival Date: 10/02/2021 Time: 07:44 Bed 7 Private MD: Jaja Peter ED Physician Brady Sweeney HPI: 10/02 08:48 This 20 yrs old Female presents to ER via Ambulatory with complaints of Covid Test, Flu kdr Symptoms. 08:48 The patient or guardian reports cough, that is intermittent, described as mild. Onset: kdr The symptoms/episode began/occurred 1-3 presents to the ED with a complaint of cough and congestion with subjective fever and headache as well as generalized body aches for the past 2 days. She was exposed to Covid last week. She does not appear toxic at this time and vital signs are noted to be normal except for a temperature of 100.8. Patient otherwise appears stable on presentation. Modifying factors: The symptoms are alleviated by nothing. the symptoms are aggravated by nothing. Associated signs and symptoms: Pertinent positives: fever. Severity of symptoms: At their worst the symptoms were mild in the emergency department the symptoms are unchanged. The patient has experienced a previous episode. The patient has not recently seen a physician. Historical: - Allergies: 08:08 No Known Allergies; ll1 - PMHx: 08:08 PCOS; ll1 - PSHx: 08:08 abscess; ll1 - Immunization history:: Client reports having NOT received the Covid vaccine. Flu vaccine status is unknown. - Social history:: Smoking status: Patient reports the use of cigarette tobacco products, denies chronic smoking, but will smoke occasionally. ROS: 08:48 Eyes: Negative for injury, pain, redness, and discharge. kdr 08:48 Constitutional: Negative for weight loss, Neck: Negative for injury, pain, and swelling, Cardiovascular: Negative for chest pain, palpitations, and edema, Abdomen/GI: Negative for abdominal pain, nausea, vomiting, diarrhea, and constipation, Back: Negative for injury and pain, : Negative for injury, bleeding, discharge, and swelling, MS/Extremity: Negative for injury and deformity, Skin: Negative for injury, rash, and discoloration, Neuro: Negative for headache, weakness, numbness, tingling, and seizure activity. Psych: Negative for depression, anxiety, suicide ideation, homicidal ideation, and hallucinations, Allergy/Immunology: Negative for hives, rash, and allergies, Endocrine: Negative for neck swelling, polydipsia, polyuria, polyphagia, and marked weight changes, Hematologic/Lymphatic: Negative for swollen nodes, abnormal bleeding, and unusual bruising. 08:48 Constitutional: Positive for body aches, chills, fever, malaise, Negative for poor PO intake. 08:48 Respiratory: Positive for cough, with no reported sputum, Negative for dyspnea on exertion, hemoptysis, orthopnea, pleurisy, shortness of breath, sputum production. Exam: 08:48 Constitutional: This is a well developed, well nourished patient who is awake, alert, kdr and in no acute distress. Head/Face: Normocephalic, atraumatic. Eyes: Pupils equal round and reactive to light, extra-ocular motions intact. Lids and lashes normal. Conjunctiva and sclera are non-icteric and not injected. Cornea within normal limits. Periorbital areas with no swelling, redness, or edema. Neck: Trachea midline, no thyromegaly or masses palpated, and no cervical lymphadenopathy. Supple, full range of motion without nuchal rigidity, or vertebral point tenderness. No Meningismus. Chest/axilla: Normal chest wall appearance and motion. Nontender with no deformity. No lesions are appreciated. Cardiovascular: Regular rate and rhythm with a normal S1 and S2. No gallops, murmurs, or rubs. Normal PMI, no JVD. No pulse deficits. Respiratory: Lungs have equal breath sounds bilaterally, clear to auscultation and percussion. No rales, rhonchi or wheezes noted. No increased work of breathing, no retractions or nasal flaring. Abdomen/GI: Soft, non-tender, with normal bowel sounds. No distension or tympany. No guarding or rebound. No evidence of tenderness throughout. Back: No spinal tenderness. No costovertebral tenderness. Full range of motion. Skin: Warm, dry with normal turgor. Normal color with no rashes, no lesions, and no evidence of cellulitis. MS/ Extremity: Pulses equal, no cyanosis. Neurovascular intact. Full, normal range of motion. Neuro: Awake and alert, GCS 15, oriented to person, place, time, and situation. Cranial nerves II-XII grossly intact. Motor strength 5/5 in all extremities. Sensory grossly intact. Cerebellar exam normal. Normal gait. Psych: Awake, alert, with orientation to person, place and time. Behavior, mood, and affect are within normal limits. Vital Signs: 08:09 BP 131 / 81; Pulse 97; Resp 18; Temp 100.8; Pulse Ox 99% ; Weight 124.74 kg; Height 5 ll1 ft. 4 in. (162.56 cm); Pain 5/10; 11:27 BP 126 / 82; Pulse 84; Resp 20; Temp 98.5(O); Pulse Ox 99% ; jh6 08:09 Body Mass Index 47.20 (124.74 kg, 162.56 cm) ll1 MDM: 08:48 Data reviewed: vital signs, nurses notes, lab test result(s). kdr 10:54 Patient medically screened. kdr 10/02 08:25 Order name: Strep kdr 10/02 08:25 Order name: Group A Streptococcus Rapid Sc; Complete Time: 10:42 EDMS 10/02 09:05 Order name: COVID-19/FLU A+B; Complete Time: 10:42 EDMS 10/02 10:00 Order name: Throat Culture EDMS Administered Medications: No medications were administered Disposition Summary: 10/02/21 10:54 Discharge Ordered Location: Home kdr Problem: new kdr Symptoms: have improved kdr Condition: Stable kdr Diagnosis - Acute upper respiratory infection, unspecified kdr - SARS-associated coronavirus as the cause of diseases classified elsewhere kdr Followup: kdr - With: Jaja Peter - When: 2 - 3 days - Reason: If symptoms return, Further diagnostic work-up, Recheck today's complaints, Continuance of care, Re-evaluation by your physician Discharge Instructions: - Discharge Summary Sheet kdr - Upper Respiratory Infection, Adult, [id number] kdr - Viral Respiratory Infection, [id number] kdr - COVID-19 kdr - Things to Know about the COVID-19 Pandemic - [facility] kdr - 10 Things You Can Do to Manage Your COVID-19 Symptoms at Home - [facility] kdr - COVID-19: Quarantine vs. Isolation - [facility] kdr - Prevent the Spread of COVID-19 if You Are Sick - [facility] kdr Forms: - Medication Reconciliation Form kdr - Thank You Letter kdr Signatures: Dispatcher [employer] EDMS Brady Sweeney MD MD kdr Krishna Phillips RN RN ll1 Corrections: (The following items were deleted from the chart) 09:05 08:13 CORONAVIRUS+MR.LAB.BRZ ordered. EDMS EDMS 09:07 08:25 Influenza Screen (A \T\ B)+BA.LAB.BRZ ordered. EDMS EDMS
[2021-10-02 11:34] VITALS: O2SAT 99
[2021-10-02 11:36] VITALS: BP 126/82; TEMP 98.5
== END 2021-10-02 11:28 | disposition home or self-care (01) ==
LOC: ER 07:41
DX: U07.1 COVID-19 (principal); J06.9 Acute upper respiratory infection, unspecified
CPT/HCPCS: 87070; 87081; 0240U; 99283

== ENCOUNTER 2021-12-21 18:00 | Emergency (ER) | payer BC ==
--- OUTSIDE RECORDS SUMMARY | 2021-12-21 18:02 | XMS REPORT | Continuity of Care Document ---
:[address] [facility] t Address [address] [place] [address] Care Team Providers Name Role Phone Radiology Attending Clinician Unavailable SANTOSH Attending Clinician Unavailable Pob, Lab Main Attending Clinician Unavailable Santosh YATES [...] ve sleep 00:00: [place] apnea) apnea) 00 [facility] Allergies, Adverse Reactions, Alerts Allergy Allergy Status Severity Reaction(s) Onset Inactive Treating Comm ents Source Name Type Date Date Clinician NO KNOWN Drug Active [facility] ALLERGIE Class ity of [facility] Social History Social Habit Start Date Stop Date Quantity Comments Source Exposure to Not sure [facility] SARS-CoV-2 (event) [facility] Tobacco use and 2016-08-08 2016-08-08 Never used [facility] exposure 00:00:00 00:00:00 [facility] Alcohol intake 2016-08-08 2016-08-08 [facility] 00:00:00 00:00:00 [facility] Sex Assigned At [birth year] [facility] 00:00:00 00:00:00 [facility] Smoking Status Start Date Stop Date Source Never smoker [facility] Medications Ordered Filled Start Stop Current Ordering Indication Dosage Frequency Signature Comments Components Source Medication Medication Date Date Medication? Clinician (SIG) Name Name christoph 2020- No [id number] 100mL 100 mL, Univers (OMNIPAQUE 01-1916 Intravenou it y of 350 17:58: 18:04 [...] per 00:00: [place] tablet 00 [facility] VESTURA, Yes TK 1 T PO Univ ers 28, 3-0.02 9-02 QD ity of mg per 00:00: [place] tablet 00 [facility] VESTURA, 2016-0 Yes TK 1 T PO Univ ers 28, 3-0.02 9-02 QD ity of mg per 00:00: [place] tablet 00 [facility] Procedures Procedure Date / Time Performed Performing Clinician Sourc e CT ABDOMEN PELVIS W WO 2021-01-19 18:03:11 [facility] 2021-01-19 17:55:00 Radiology Universi [facility] [place] CONSENT/REFUSAL FOR 2021-01-19 16:50:46 Doctor Unassigned, No [facility] TREATMENT ASSIGNMENT OF BENEFITS 2021-01-19 16:50:31 Doctor Unassigned, No [facility] Encounters Start End Encounter Admission Attending Care Care Encounter Source Date/Time Date/Time Type Type Clinicians Facility Department ID 2021-01-19 2021-01-19 Hospital Radiology [facility] [id number] Univers 11:55:00 23:59:00 Encounter Jaron [id number] ity [facility] [id number] [facility] [phone] [address] 2021-01-19 2021-01-19 Outpatient R SANTOSH [facility] [id number] Univers 12:45:00 12:45:00 [place] gonzalez [facility] 2021-01-19 2021-01-19 Stencil Cutter Machine Luis, Renetta Lab Main [facility] [id number] Univers 11:52:24 12:07:24 Visit [place]o العلي [id number] ity [facility] [id number] [id number] Dc dical nal [address] 2021-01-19 2021-01-19 Outpatient R RADIOLOGY [facility] [id number] Univers 11:55:00 11:55:00 [id number] ity [facility] 2021-01-19 2021-01-19 Outpatient R RADIOLOGY [facility] RAD [id number] Univers 00:00:00 00:00:00 ity [facility] 2021-01-19 2021-01-19 Orders Doctor RICHIE [id number] Univers 00:00:00 00:00:00 Only Unassigned, BILLY [id number] ity of [facility] [id number] Jamar as [phone] [address] Results Test Description Test Time Test Comments Results Result Comments Source POCT CREATININE 2021-01-20 00:04:20 Test Item Value Reference Range Interpretation Comme nts POCT Creatinine (test code = 9556352582) 0.6 mg/dL 0.5-1.1 Lab Interpretation (test code = 27727-2) [facility] WO [id number] 18:31:201. ?Normal appendix. 2. ?Scattered subcentimeter lymph [...] the is any concern for ovarian torsion. [facility]
[2021-12-21] MEDS ORDERED: ONDANSETRON 4 MG/2 ML VIAL ONE (21:03)
[2021-12-21] MEDS ORDERED: FAMOTIDINE 20 MG/2 ML VIAL IV ONE ×2 (21:03→21:51)
[2021-12-21] MEDS ORDERED: NA CHLORIDE 0.9% 1,000 ML ONE (21:03)
[2021-12-21] MEDS ORDERED: MORPHINE 4 MG/ML SYR ONE (21:51)
[2021-12-21 22:05] LABS: Urine Blood Negative (Negative); Urine Glucose Negative (Negative); Urine Protein 1+ (Negative); Urine pH 8.5 (5.0-7.0)
[2021-12-21 22:07] LABS: Absolute Lymphocytes (CBC) 1.3 K/uL (0.7-4.9); Hematocrit 42.2 % (36.0-45.0); Lymphocytes % 7.8 % (15.3-44.8); MPV 9.3 fL (7.6-11.3); RBC Red Blood Cell Count 5.04 M/uL (3.86-4.86)
[2021-12-21 22:25] LABS: Albumin 4.2 g/dL (3.4-5.0); Bilirubin Total 0.5 mg/dL (0.2-1.0); Potassium 3.3 mmol/L (3.5-5.1); Protein, Total 8.2 g/dL (6.4-8.2)
[2021-12-21 22:28] LABS: Urine Amorphous Sediment 2+ /HPF (NONE SEEN); Urine Bacteria >50 /HPF (<20); Urine Mucus 2+ /HPF (NONE SEEN); Urine RBC <5 /HPF (NONE SEEN)
--- NOTE | 2021-12-22 00:11 | EDPHYS ---
Physician Documentation [facility] Name: Lynne Pearson Age: 21 yrs Sex: Female : 2000 Arrival Date: 12/21/2021 Time: 18:01 Bed Treatment Private MD: ED Physician Brady Sweeney HPI: 12/21 20:45 This 21 yrs old Female presents to ER via Ambulatory with complaints of Numbness, cp Abdominal Pain, Vomiting. 20:45 The patient presents with abdominal pain. Onset: The symptoms/episode began/occurred cp today. Associated signs and symptoms: Pertinent positives: nausea and vomiting, diarrhea, paresthesias of hands and mouth, Pertinent negatives: blood in stools, fever, vomiting blood. The symptoms are described as constant. Severity of pain: in the emergency department the pain is unchanged despite home interventions. Historical: - Allergies: 18:19 No Known Allergies; ll1 - PMHx: 18:19 PCOS; insulin resistant; ll1 - PSHx: 18:19 abscess; ll1 - Immunization history:: Client reports having NOT received the Covid vaccine. - Social history:: Smoking status: Patient denies any tobacco usage or history of. ROS: 20:50 Constitutional: Negative for body aches, chills, fever, poor PO intake. cp 20:50 Eyes: Negative for injury, pain, redness, and discharge. cp 20:50 ENT: Negative for drainage from ear(s), ear pain, sore throat, difficulty swallowing, difficulty handling secretions. 20:50 Cardiovascular: Negative for chest pain, edema, palpitations. 20:50 Respiratory: Negative for cough, shortness of breath, wheezing. 20:50 Abdomen/GI: Positive for abdominal pain, nausea, vomiting, and diarrhea, Negative for constipation, hematemesis, black/tarry stool, rectal bleeding. 20:50 : Negative for urinary symptoms. 20:50 Neuro: Positive for numbness, of the right hand, left hand and mouth, Negative for altered mental status. 20:50 All other systems are negative. Exam: 20:55 Constitutional: The patient appears in no acute distress, alert, awake, cp non-diaphoretic, non-toxic, well developed, well nourished, obese. 20:55 Head/Face: Normocephalic, atraumatic. cp 20:55 Eyes: Periorbital structures: appear normal, Conjunctiva: normal, no exudate, no injection, Sclera: no appreciated abnormality, Lids and lashes: appear normal, bilaterally. 20:55 ENT: External ear(s): are unremarkable, Nose: is normal, Mouth: Lips: moist, Oral mucosa: pink and intact, moist, Posterior pharynx: is normal, airway is patent, no erythema, no exudate. 20:55 Neck: ROM/movement: is normal, is supple, without pain, no range of motions limitations. 20:55 Chest/axilla: Inspection: normal, Palpation: is normal, no crepitus, no tenderness. 20:55 Cardiovascular: Rate: normal, Rhythm: regular. 20:55 Respiratory: the patient does not display signs of respiratory distress, Respirations: normal, no use of accessory muscles, no retractions, labored breathing, is not present, Breath sounds: are clear throughout, no decreased breath sounds, no stridor, no wheezing. 20:55 Abdomen/GI: Inspection: abdomen appears normal, Bowel sounds: active, all quadrants, Palpation: soft, in all quadrants, moderate abdominal tenderness, in the abdomen diffusely, rebound tenderness, is not appreciated, involuntary guarding, is not appreciated. 20:55 Back: CVA tenderness, is absent. 20:55 Neuro: Orientation: to person, place \T\ time. Mentation: is normal, Motor: moves all fours, strength is normal, Sensation: tingling, that is mild, of the right hand, left hand and mouth. 22:37 ECG was reviewed by the Attending Physician. kdr Vital Signs: 18:17 BP 154 / 98; Pulse 94; Resp 26; Temp 97.0; Pulse Ox 100% ; Weight 122.47 kg; Height 5 ll1 ft. 4 in. (162.56 cm); Pain 8/10; 18:28 Resp 22; ll1 22:06 BP 116 / 69; Pulse 52; Resp 20; Temp 97.9; Pulse Ox 100% ; cs9 12/22 00:36 BP 129 / 85; Pulse 68; Resp 22; Temp 98.2; Pulse Ox 98% ; cs9 12/21 18:17 Body Mass Index 46.34 (122.47 kg, 162.56 cm) ll1 MDM: 12/21 20:31 Patient medically screened. 21:00 Differential diagnosis: appendicitis, cholecystitis, Cholelithiasis, gastritis, cp non-specific abd pain, pancreatitis, Peptic Ulcer Disease, Perf. Duodenal Ulcer, Perf. Gastric Ulcer, Ureterolithiasis, urinary tract infection, . 12/22 00:10 Data reviewed: vital signs, nurses notes, lab test result(s), EKG, radiologic studies, cp CT scan. 00:10 Test interpretation: by ED physician or midlevel provider: ECG. Counseling: I had a cp detailed discussion with the patient and/or guardian regarding: the historical points, exam findings, and any diagnostic results supporting the discharge/admit diagnosis, lab results, radiology results, to return to the emergency department if symptoms worsen or persist or if there are any questions or concerns that arise at home. Response to treatment: the patient's symptoms have markedly improved after treatment, patient is well hydrated. VSS. Symptoms markedly improved, vomiting resolved. CT abdomen/pelvis negative for emergent findings. Will discharge to home for continued monitoring. 12/21 20:39 Order name: CBC with Diff 12/21 20:39 Order name: CMP; Complete Time: 23:44 12/21 23:44 Interpretation: Normal except: K 3.3; CO2 20; GLUC 155; GFR 87; AST 12. 12/21 20:39 Order name: Lipase; Complete Time: 23:44 12/21 20:39 Order name: Urine Microscopic Only; Complete Time: 23:44 12/21 23:59 Interpretation: Normal except: UWBC 5-10; UBACT >50; SQEPI 10-20; AMORPH 2+. 12/21 20:40 Order name: CBC with Automated Diff; Complete Time: 23:44 EDMD 12/21 23:44 Interpretation: Normal except: WBC 16.20; RBC 5.04; MAURICIO% 87.7; LYM% 7.8; NEUT A 14.2. 12/21 22:04 Order name: Urine Dipstick-Ancillary; Complete Time: 23:44 EDMD 12/21 21:18 Order name: CT Abd/Pelvis - IV Contrast Only 12/21 22:05 Order name: Urine --Ancillary (enter results); Complete Time: 23:44 mw2 12/21 22:29 Order name: Urine Culture EDMD 12/21 20:39 Order name: IV Saline Lock; Complete Time: 22:06 cp 12/21 20:39 Order name: Labs collected and sent; Complete Time: : cp 12/21 20:39 Order name: Urine Dipstick-Ancillary (obtain specimen); Complete Time: 22:06 cp 12/21 20:39 Order name: Urine Test (obtain specimen); Complete Time: 22:06 cp EC/18 22:37 Rate is 90 beats/min. Rhythm is regular, Sinus Rhythm with Right bundle branch block. kdr QRS [place] is Normal. [place] interval is normal. QRS interval is normal. QT interval is normal. Clinical impression: NSR w/ Non-specific ST/T Changes. Administered Medications: 18:28 Drug: Ondansetron 4 mg Route: PO; ll1 20:00 Follow up: Response: No adverse reaction bb 21:40 Drug: NS 0.9% 1000 ml Route: IV; Rate: 1 bolus; Site: right antecubital; bb 22:45 Follow up: IV Status: Completed infusion; IV Intake: 1000ml bb 21:40 Drug: Zofran (Ondansetron) 4 mg Route: IVP; Site: right antecubital; bb 22:30 Follow up: Response: No adverse reaction bb 21:50 Drug: Pepcid (famotidine) 20 mg Route: IVP; Site: right antecubital; bb 22:30 Follow up: Response: No adverse reaction bb 21:50 Drug: morphine 4 mg {Note: RASS 0.} Route: IVP; Site: right antecubital; bb 22:30 Follow up: Response: No adverse reaction; Pain is decreased; RASS: Drowsy (-1) 12/22 00:51 Drug: Potassium Effervescent Tablet 50 mEq Route: PO; bb 00:59 Follow up: Response: Medication administered at discharge. bb Disposition Summary: 12/22/21 00:11 Discharge Ordered Location: Home cp Problem: new cp Symptoms: have improved cp Condition: Stable cp Diagnosis - Nausea with vomiting, unspecified cp - Diarrhea, unspecified cp Followup: cp - With: Private Physician - When: 2 - 3 days - Reason: Worsening of condition Discharge Instructions: - Discharge Summary Sheet cp - Food Choices to Help Relieve Diarrhea, Adult cp - Diarrhea, Adult cp - Nausea and Vomiting, Adult cp Forms: - Medication Reconciliation Form cp - Thank You Letter cp - Antibiotic Education cp - Prescription Opioid Use cp Prescriptions: - Zofran 4 mg Oral Tablet - take 1 tablet by ORAL route every 12 hours As needed; 20 tablet; Refills: 0, cp Product Selection Permitted - dicyclomine 20 mg Oral Tablet - take 1 tablet by ORAL route 4 times per day; 30 tablet; Refills: 0, Product cp Selection Permitted Addendum: 12/27/2021 07:27 Co-signature as Attending Physician, Brady Sweeney MD I agree with the assessment and k dr plan of care. Signatures: Dispatcher [employer] EDMD Brady Sweeney MD MD [facility] Sindy Crystal RN RN bb Sekou Hensley PA PA Krishna Castro RN RN ll1
--- NOTE | 2021-12-22 00:11 | ER ---
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 Fast breathing, ll1 bilateral hand numbness, and tongue/mouth numbness for 1.5 hours. Coronavirus screen: Vaccine status: Patient reports being unvaccinated. Client denies travel out of the [place] in the last 14 days. At this time, the client does not indicate any symptoms associated with coronavirus-19. Ebola Screen: Patient denies travel to an Ebola-affected area in the 21 days before illness onset. Initial Sepsis Screen: Does the patient meet any 2 criteria? RR > 20 per min. HR > 90 bpm. Does the patient have a suspected source of infection? Yes: Acute abdominal pain. Risk Assessment: Do you want to hurt yourself or someone else? Patient reports no desire to harm self or others. Onset of symptoms was December 21, 2021. 18:17 Method Of Arrival: Ambulatory ll1 18:17 Acuity: JAYMIE 3 ll1 Triage Assessment: 18:19 General: Appears uncomfortable, Behavior is appropriate for age, anxious. Pain: ll1 Complains of pain in upper abd Quality of pain is described as aching, crampy. EENT: Reports tingling to mouth/tongue. GI: Reports upper abdominal pain, diarrhea, nausea, vomiting. Musculoskeletal: Reports carpal spasms, arms numb. Historical: - Allergies: 18:19 No Known Allergies; ll1 - PMHx: 18:19 PCOS; insulin resistant; ll1 - PSHx: 18:19 abscess; ll1 - Immunization history:: Client reports having NOT received the Covid vaccine. - Social history:: Smoking status: Patient denies any tobacco usage or history of. Screenin:25 Abuse screen: Denies threats or abuse. Nutritional screening: No deficits noted. bb Tuberculosis screening: No symptoms or risk factors identified. Fall Risk None identified. Assessment: 20:25 General: Appears uncomfortable, ill, Behavior is cooperative, anxious, Reports bb abdominal pain and uncontrollable vomiting. 20:25 Pain: Complains of pain in abdomen. Neuro: Level of Consciousness is awake, alert, bb obeys commands, Oriented to person, place, time, situation. Cardiovascular: Capillary refill < 3 seconds Patient's skin is warm and dry. Respiratory: Respiratory effort is unlabored, Respiratory pattern is tachypnea. GI: Abdomen is obese. Derm: Skin is dry, Skin is pale, Skin temperature is warm. Musculoskeletal: Circulation, motion, and sensation intact. 22:15 Reassessment: Patient is alert, oriented x 3, equal unlabored respirations, skin bb warm/dry/pink. pt awaiting diagnostic results, family at bedside. 12/22 00:58 Reassessment: Patient is alert, oriented x 3, equal unlabored respirations, skin bb warm/dry/pink. pt states she is feeling much better pt verbalized understanding of and agrees to plan of care discharge instructions given pt ambulated with steady gait to exit accompanied by family Patient states feeling better. Patient states symptoms have improved. Vital Signs: 12/21 18:17 BP 154 / 98; Pulse 94; Resp 26; Temp 97.0; Pulse Ox 100% ; Weight 122.47 kg; Height 5 ll1 ft. 4 in. (162.56 cm); Pain 8/10; 18:28 Resp 22; ll1 22:06 BP 116 / 69; Pulse 52; Resp 20; Temp 97.9; Pulse Ox 100% ; cs9 12/22 00:36 BP 129 / 85; Pulse 68; Resp 22; Temp 98.2; Pulse Ox 98% ; cs9 12/21 18:17 Body Mass Index 46.34 (122.47 kg, 162.56 cm) ll1 ED Course: 12/21 18:01 Patient arrived in ED. as 18:19 Triage completed. ll1 18:19 Arm band placed on. ll1 20:21 Sekou Hensley PA is PHCP. cp 20:21 Brady Sweeney MD is Attending Physician. cp 20:25 Patient has correct armband on for positive identification. Bed in low position. Call bb light in reach. Side rails up X 1. Adult w/ patient. Warm blanket given. 20:35 Sindy Crystal RN is Primary Nurse. bb 21:38 Missed attempt(s): 20 gauge in left antecubital area. bb 21:40 Inserted saline lock: in right antecubital area, using aseptic technique. Blood bb collected. 21:45 Initial lab(s) drawn, by me, sent to lab. Urine collected:. bb 22:58 CT Abd/Pelvis - IV Contrast Only In Process Unspecified. EDSC 12/22 00:57 No provider procedures requiring assistance completed. IV discontinued, intact, bb bleeding controlled, No redness/swelling at site. Pressure dressing applied. Administered Medications: 12/21 18:28 Drug: Ondansetron 4 mg Route: PO; ll1 20:00 Follow up: Response: No adverse reaction bb 21:40 Drug: NS 0.9% 1000 ml Route: IV; Rate: 1 bolus; Site: right antecubital; bb 22:45 Follow up: IV Status: Completed infusion; IV Intake: 1000ml bb 21:40 Drug: Zofran (Ondansetron) 4 mg Route: IVP; Site: right antecubital; bb 22:30 Follow up: Response: No adverse reaction bb 21:50 Drug: Pepcid (famotidine) 20 mg Route: IVP; Site: right antecubital; bb 22:30 Follow up: Response: No adverse reaction bb 21:50 Drug: morphine 4 mg {Note: RASS 0.} Route: IVP; Site: right antecubital; bb 22:30 Follow up: Response: No adverse reaction; Pain is decreased; RASS: Drowsy (-1) bb 12/22 00:51 Drug: Potassium Effervescent Tablet 50 mEq Route: PO; bb 00:59 Follow up: Response: Medication administered at discharge. bb Intake: 12/21 22:45 IV: 1000ml; Total: 1000ml. bb Outcome: 12/22 00:11 Discharge ordered by . cp 01:02 Discharged to home ambulatory, with family. bb 01:02 Condition: stable 01:02 Discharge instructions given to patient, Instructed on discharge instructions, follow up and referral plans. medication usage, Demonstrated understanding of instructions, follow-up care, medications, Prescriptions given X 2. 01:02 Patient left the ED. bb Signatures: Dispatcher [employer] EDSC Jacqueline Pena Brenda RN RN bb Sekou Hensley PA PA cp Lewis, Lynsay, RN RN 1 Rosa Isela Zuñiga cs9
[2021-12-22] MEDS ORDERED: POTASSIUM 25 MEQ EFFERV TAB ONE (00:47)
[2021-12-22 02:38] VITALS: BP 129/85; TEMP 98.2; O2SAT 98
--- NOTE | 2021-12-22 21:30 | RAD REPORT ---
EXAM DESCRIPTION: CT - Abdomen Pelvis W Contrast - 12/22/2021 5:08 am CLINICAL HISTORY: 21 years, Female, ABD PAIN COMPARISON: None. TECHNIQUE: Contrast-enhanced images of the abdomen and pelvis were performed utilizing 5 mm slice th ickness at 5 mm interval reconstruction from the lung bases to the ischial tuberosities after the adm inistration IV contrast. In addition multiplanar reformats in the coronal and sagittal plane were obtained and reviewed. This exam was performed according to our departmental dose-optimization protocol, which includes auto mated exposure control, adjustment of the mA and/or kV according to patient size and/or use of iterat maicol reconstruction technique. FINDINGS: The lung bases demonstrate to be clear. The liver, gallbladder, pancreas, spleen and adrenal glands demonstrate to be unremarkable, no focal lesions are noted. The kidneys demonstrate normal uptake and partial excretion of contrast media. No evidence for nephro lithiasis and/or hydronephrosis. Grossly the unopacified stomach, small bowel and large bowel demonstrate to be within normal limits. There is no evidence for bowel dilatation/or free air. The appendix is normal. The urinary bladder demonstrate to be unremarkable. The uterus demonstrate to be within normal limi ts. There are normal bilateral ovaries, right side measuring 4.6 x 2.8 cm and left side measuring 2.8 x 3.6 cm. The aorta demonstrate to be normal. There is no retroperitoneal lymphadenopathy. There is no evidence for ascites or and/or significant abnormal fluid collections. The rest of the soft ti ssue and bony structures are within normal limits. IMPRESSION: No acute intra-abdominal process. Normal appendix. Otherwise unremarkable CT scan of the abdomen and pelvis with contrast. Electronically signed by: Dakota Lynn MD 12/21/2021 11:18 PM CDT Due to temporary technical issues with the PACS/Fluency reporting system, reports are being signed by the in house radiologists without review as a courtesy to insure prompt reporting. The interpreting radiologist is fully responsible for the content of the report.
== END 2021-12-22 01:02 | disposition home or self-care (01) ==
LOC: ER 18:00
DX: R11.2 Nausea with vomiting, unspecified (principal); R19.7 Diarrhea, unspecified
CPT/HCPCS: 96361; 87088; 85025; 87086; 36415; 81025; 83690; 80053; 74177; 96375; 96374; 99284; Q9967; J7030; J2405; 81003; 81015